=== PATIENT | male | born 1960 | race Caucasian/White ===

== ENCOUNTER 2016-09-27 14:22 | Inpatient (IN) | payer MEDICAID ==
[~2016-09-27] VITALS: Ht 177.8 cm; Wt 88.5 kg
[~2016-09-27 14:22] MED LIST: APIX5TAB PO; FURO40TA5 PO
[2016-09-27] MEDS ORDERED: NITROGLYCERIN PACKET 1 GM PACKET ONE (14:54)
[2016-09-27] MEDS ORDERED: FUROSEMIDE 40 MG/4 ML VIAL ONE (14:54)
[2016-09-27] MEDS ORDERED: NITROGLYCERIN PACKET 1 GM PACKET TD ONE (15:00)
[2016-09-27] MEDS ORDERED: FUROSEMIDE 40 MG/4 ML VIAL IV ONE (15:00)
[2016-09-27 15:09] LABS: BASOPHILS % (AUTO) 0.6 % (0.0-2.0); DIFF TOTAL % 100 %; EOSINOPHILS # (AUTO) 0.2 /CMM (0.0-0.7); EOSINOPHILS % (AUTO) 2.8 % (0.0-6.0); HEMATOCRIT 38 % (39-51); HEMOGLOBIN 12.6 g/dL (13.5-17.5); LYMPHOCYTES # (AUTO) 1.3 /CMM (0.8-4.8); LYMPHOCYTES % (AUTO) 16.6 % (20.0-44.0); MEAN CORPUSCULAR HEMOGLOBIN 29 PG (26.0-33.0); MEAN CORPUSCULAR HGB CONC 34 g/dl (31.0-36.0); MEAN CORPUSCULAR VOLUME 87 fL (80-96); MONOCYTES # (AUTO) 0.6 /CMM (0.1-1.30); MONOCYTES % (AUTO) 7.5 % (2.0-12.0); NEUTROPHILS % (AUTO) 72.5 % (43.0-81.0); PLATELET COUNT (AUTO) 226 /CMM (150-450); RED BLOOD CELL COUNT(AUTO) 4.34 MIL/uL (4.5-6.0); WHITE BLOOD COUNT (AUTO) 8.1 K/uL (4.3-11.0)
[2016-09-27] MEDS ORDERED: DILTIAZEM HCL 25 MG IV ONE (15:17)
[2016-09-27] MEDS ORDERED: IV SET PRIMARY PUMP SET 1 EA INFUS.SET MC ONE (15:17)
[2016-09-27 15:20] LABS: ANION GAP 15 (5-14); CALCIUM, SERUM 8.6 mg/dL (8.5-10.1); CARBON DIOXIDE 24 mmol/L (21-32); CHLORIDE 108 mmol/L (98-107); CREATININE 1.3 mg/dL (0.6-1.3); GFR 57 mL/min (>60); GLUCOSE 144 mg/dL (74-106); POTASSIUM 4.3 mmol/L (3.5-5.1); SODIUM SERUM 142 mmol/L (136-145); UREA NITROGEN, BLOOD 24 mg/dL (7-18)
[2016-09-27 15:24] LABS: INR 1.12 (0.87-1.13); PROTHROMBIN TIME 11.8 SECS (9.5-12.7)
[2016-09-27 15:28] LABS: TROPONIN I < 0.017 ng/mL (0.00-0.056)
[2016-09-27] MEDS ORDERED: DILTIAZEM HCL 25 MG IV IVP ONE (15:30)
[2016-09-27] MEDS: DILTIAZEM HCL IV 125 MG in IV D5W 100 ML IV ONE (15:30)
[2016-09-27 15:32] LABS: ALANINE AMINOTRANSFERASE 47 U/L (12-78); ALBUMIN 3.3 g/dL (3.4-5.0); ASPARTATE AMINOTRANSFERASE 38 U/L (15-37); BILIRUBIN,DIRECT 0.2 mg/dL (0.0-0.2); BILIRUBIN,TOTAL 0.8 mg/dL (0.2-1.0); INDIRECT BILIRUBIN 0.6 mg/dL (0.0-1.1); TOTAL PROTEIN, SERUM 6.6 g/dL (6.4-8.2)
[2016-09-27] MEDS ORDERED: DILTIAZEM HCL IV 125 MG in IV D5W 100 ML IV PRN (18:00)
[2016-09-27] MEDS ORDERED: ONDANSETRON HCL/PF 4 MG/2 ML VIAL IVP PRN (18:00)
[2016-09-27] MEDS ORDERED: ZOLPIDEM TARTRATE 5 MG TABLET PO PRN (18:00)
[2016-09-27] MEDS ORDERED: HYDROCODONE/APAP 5/325MG 1 EACH TABLET PO PRN (18:00)
[2016-09-27] MEDS ORDERED: MAGNESIUM HYDROXIDE 30 ML UDC PO PRN (18:00)
[2016-09-27] MEDS ORDERED: Z GUARD REMEDY 2 OZ OINT TP PRN (18:00)
[2016-09-27] MEDS ORDERED: DIGOXIN INJ 0.5 MG/2 ML AMPUL IV ONE (18:00)
[2016-09-27] MEDS ORDERED: ACETAMINOPHEN 325 MG TABLET PO PRN (18:00)
[2016-09-27] MEDS ORDERED: MAG HYDROX/AL HYDROX/SIMETH 30 ML UDC PO PRN (18:00)
[2016-09-27] MEDS ORDERED: METOPROLOL TARTRATE 25 MG TABLET PO SCH (18:00)
[2016-09-27] MEDS ORDERED: METOPROLOL TARTRATE 25 MG TABLET ONE (18:05)
[2016-09-27] MEDS ORDERED: LORAZEPAM INJ 2 MG/ML VIAL IV PRN (18:30)
[2016-09-27 18:31] LABS: CANNABINOID, URINE NEGATIVE (NEGATIVE); PHENCYCLIDINE SCREEN,URINE NEGATIVE (NEGATIVE)
[2016-09-27 19:30] VITALS: BP 137/90
[2016-09-27 20:00] VITALS: BP 137/90
[2016-09-27] MEDS: APIXABAN 5 MG TABLET PO SCH (21:03)
[2016-09-27] MEDS ORDERED: DILTIAZEM HCL 30 MG TABLET ONE (23:53)
[2016-09-28] VITALS: BP 130/74
[2016-09-28] MEDS: DILTIAZEM HCL 30 MG TABLET PO SCH ×3 (00:10→11:56)
[2016-09-28 04:00] VITALS: BP 137/74
[2016-09-28] MEDS ORDERED: DILTIAZEM HCL 30 MG TABLET ONE (05:22)
[2016-09-28] MEDS ORDERED: PANTOPRAZOLE 40 MG TABLET.DR PO SCH (07:30)
[2016-09-28 07:42] LABS: BASOPHILS # (AUTO) 0.1 /CMM (0.0-0.2); BASOPHILS % (AUTO) 1.2 % (0.0-2.0); DIFF TOTAL % 100 %; EOSINOPHILS # (AUTO) 0.3 /CMM (0.0-0.7); EOSINOPHILS % (AUTO) 3.1 % (0.0-6.0); HEMATOCRIT 40 % (39-51); HEMOGLOBIN 13.6 g/dL (13.5-17.5); LYMPHOCYTES % (AUTO) 22.2 % (20.0-44.0); MEAN CORPUSCULAR HEMOGLOBIN 29 PG (26.0-33.0); MEAN CORPUSCULAR HGB CONC 34 g/dl (31.0-36.0); MEAN CORPUSCULAR VOLUME 87 fL (80-96); MONOCYTES # (AUTO) 0.9 /CMM (0.1-1.30); MONOCYTES % (AUTO) 9.8 % (2.0-12.0); NEUTROPHILS # (AUTO) 5.7 /CMM (1.8-8.9); NEUTROPHILS % (AUTO) 63.7 % (43.0-81.0); PLATELET COUNT (AUTO) 238 /CMM (150-450); RED BLOOD CELL COUNT(AUTO) 4.62 MIL/uL (4.5-6.0)
[2016-09-28 07:55] LABS: CREATININE 1.4 mg/dL (0.6-1.3); PHOSPHORUS 3.6 mg/dL (2.5-4.9); POTASSIUM 4.3 mmol/L (3.5-5.1)
[2016-09-28 08:00] VITALS: BP_SYST 111; BP_SYST 139; BP_DIAS 63; BP_DIAS 76
[2016-09-28] MEDS: APIXABAN 5 MG TABLET PO SCH (08:53)
[2016-09-28] MEDS ORDERED: FUROSEMIDE 40 MG TABLET PO SCH (09:00)
[2016-09-28] MEDS ORDERED: APIXABAN 5 MG TABLET PO SCH (09:00)
[2016-09-28 12:00] VITALS: BP 129/69
[2016-09-28] MEDS ORDERED: DILT240C2 PO (14:48)
[2016-09-28] MEDS ORDERED: APIX5TAB PO (14:48)
== END 2016-09-28 16:01 | disposition home or self-care (01) | DRG 194 ==
LOC: ER 14:24 → ICU 16:52 → TELE-TD 18:17 → TELE1 09-28 10:20
PROVIDERS: ADMIT Internal Medicine; ATTEND Internal Medicine
DX: I13.0 Hypertensive heart and chronic kidney disease with heart failure and stage 1 through stage 4 chronic kidney disease, or unspecified chronic kidney disease (principal); N17.0 Acute kidney failure with tubular necrosis; I48.4 Atypical atrial flutter; E44.0 Moderate protein-calorie malnutrition; I48.0 Paroxysmal atrial fibrillation; E78.5 Hyperlipidemia, unspecified; I50.33 Acute on chronic diastolic (congestive) heart failure; D63.8 Anemia in other chronic diseases classified elsewhere; I48.92 Unspecified atrial flutter; Z91.14 Patient's other noncompliance with medication regimen; N18.3 Chronic kidney disease, stage 3 (moderate); Z96.659 Presence of unspecified artificial knee joint; F17.210 Nicotine dependence, cigarettes, uncomplicated; Z68.28 Body mass index [BMI] 28.0-28.9, adult; F14.90 Cocaine use, unspecified, uncomplicated; Z91.19 Patient's noncompliance with other medical treatment and regimen; K21.9 Gastro-esophageal reflux disease without esophagitis
CPT/HCPCS: 36415; 71010-TC; 80048-TC; 80061-TC; 80076-TC; 80305; 83735-TC; 83880; 84100-TC; 84484-TC; 85025-TC; 85730-TC; 87081-TC; 93307-TC; 97001-TC; A4606; J1160; J1940; J3490; J7060; Z7610

== ENCOUNTER 2017-01-23 19:48 | Inpatient (IN) | payer MEDICAID, OTHER ==
[~2017-01-23] VITALS: Ht 177.8 cm; Wt 86.2 kg
[~2017-01-23 19:48] MED LIST changes: +DILT240C2 PO; -FURO40TA5 PO
--- NOTE | 2017-01-23 20:10 | NUR ---
PT BIB [facility] IN [employer] [facility] C/O DIFFUSE MID TO LEFT SIDED CP PRESSURE-LIKE X4 DAYS, WORSE AFTER GETTING ARRESTED. RESP EVEN UNLABORED. SKIN WARM NONDIAPHORETIC. AMBULATORY WITH STEADY GAIT. NAD NOTED. IN ER BED 14 ON MONITOR.
[2017-01-23 20:20] LABS: BASOPHILS # (AUTO) 0.3 /CMM (0.0-0.2); EOSINOPHILS # (AUTO) 0.1 /CMM (0.0-0.7); EOSINOPHILS % (AUTO) 1.3 % (0.0-6.0); HEMATOCRIT 42 % (39-51); HEMOGLOBIN 14.4 g/dL (13.5-17.5); LYMPHOCYTES # (AUTO) 1.9 /CMM (0.8-4.8); LYMPHOCYTES % (AUTO) 22.4 % (20.0-44.0); MEAN CORPUSCULAR HEMOGLOBIN 30 PG (26.0-33.0); MEAN CORPUSCULAR HGB CONC 34 g/dl (31.0-36.0); MEAN CORPUSCULAR VOLUME 88 fL (80-96); MONOCYTES # (AUTO) 0.6 /CMM (0.1-1.30); MONOCYTES % (AUTO) 6.6 % (2.0-12.0); NEUTROPHILS # (AUTO) 5.8 /CMM (1.8-8.9); NEUTROPHILS % (AUTO) 66.7 % (43.0-81.0); PLATELET COUNT (AUTO) 247 /CMM (150-450); RDW COEFFICIENT OF VARIATION 14.6 (11.5-15.0); RED BLOOD CELL COUNT(AUTO) 4.77 MIL/uL (4.5-6.0); WHITE BLOOD COUNT (AUTO) 8.7 K/uL (4.3-11.0)
[2017-01-23] MEDS ORDERED: ASPIRIN 81 MG TAB.CHEW ONE (20:27)
[2017-01-23 20:30] LABS: CALCIUM, SERUM 8.8 mg/dL (8.5-10.1); CARBON DIOXIDE 26 mmol/L (21-32); CHLORIDE 105 mmol/L (98-107); CREATININE 1.3 mg/dL (0.6-1.3); GLUCOSE 84 mg/dL (74-106); POTASSIUM 3.8 mmol/L (3.5-5.1); SODIUM SERUM 139 mmol/L (136-145); UREA NITROGEN, BLOOD 20 mg/dL (7-18)
[2017-01-23] MEDS ORDERED: ASPIRIN 81 MG TAB.CHEW PO ONE (20:30)
[2017-01-23 20:33] LABS: INR 1.01 (0.87-1.13); PROTHROMBIN TIME 10.5 SECS (9.5-12.7)
[2017-01-23 20:39] LABS: TROPONIN I < 0.017 ng/mL (0.00-0.056)
--- NOTE | 2017-01-23 21:12 | NUR ---
PAGED DR JONES DOPER OPERATOR FOR PANEL
--- NOTE | 2017-01-23 21:33 | NUR ---
RESTING QUIETLY, NAD NOTED. VSS. ALL NEEDS ATTENDED TO.
--- NOTE | 2017-01-23 21:43 | NUR ---
REPORT GIVEN TO BLAINE HUMPHREYS FOR ADMISSION
[2017-01-23 22:00] VITALS: BP 149/88
[2017-01-23] MEDS ORDERED: ZOLPIDEM TARTRATE 5 MG TABLET PO PRN (22:00)
[2017-01-23] MEDS ORDERED: Z GUARD REMEDY 2 OZ OINT TP PRN (22:00)
[2017-01-23] MEDS ORDERED: MORPHINE SULFATE INJ 2 MG/ML DISP.SYRIN IV PRN (22:00)
[2017-01-23] MEDS ORDERED: ONDANSETRON HCL/PF 4 MG/2 ML VIAL IVP PRN (22:00)
[2017-01-23] MEDS ORDERED: ACETAMINOPHEN 325 MG TABLET PO PRN (22:00)
[2017-01-23] MEDS ORDERED: MAG HYDROX/AL HYDROX/SIMETH 30 ML UDC PO PRN (22:00)
[2017-01-23] MEDS ORDERED: MAGNESIUM HYDROXIDE 30 ML UDC PO PRN (22:00)
[2017-01-23] MEDS ORDERED: HYDROCODONE/APAP 5/325MG 1 EACH TABLET PO PRN (22:00)
--- NOTE | 2017-01-23 22:00 | NUR ---
TELE NOTES New admit patient. Alert and oriented. On room air. No acute respiratory distress noted. Denies any chest pain. On tele monitor. Nursing care rendered. Oriented to the room settings. Ambulatory. Will continue to monitor.
--- NOTE | 2017-01-23 22:06 | NUR ---
PT TRANSPORTED TO [facility] IN STABLE CONDITION VIA ACLS PROTOCOL
[2017-01-24] VITALS: BP 144/76
--- NOTE | 2017-01-24 | NUR ---
TELE NOTES Der. Martínez came and seen patient.
[2017-01-24 02:00] VITALS: BP 144/76
[2017-01-24 06:23] LABS: BASOPHILS % (AUTO) 0.7 % (0.0-2.0); EOSINOPHILS # (AUTO) 0.3 /CMM (0.0-0.7); EOSINOPHILS % (AUTO) 4.3 % (0.0-6.0); HEMATOCRIT 41 % (39-51); LYMPHOCYTES # (AUTO) 1.9 /CMM (0.8-4.8); LYMPHOCYTES % (AUTO) 28.4 % (20.0-44.0); MEAN CORPUSCULAR HEMOGLOBIN 30 PG (26.0-33.0); MEAN CORPUSCULAR HGB CONC 34 g/dl (31.0-36.0); MEAN CORPUSCULAR VOLUME 89 fL (80-96); MONOCYTES # (AUTO) 0.6 /CMM (0.1-1.30); MONOCYTES % (AUTO) 8.5 % (2.0-12.0); NEUTROPHILS # (AUTO) 3.9 /CMM (1.8-8.9); NEUTROPHILS % (AUTO) 58.1 % (43.0-81.0); PLATELET COUNT (AUTO) 228 /CMM (150-450); RDW COEFFICIENT OF VARIATION 15.8 (11.5-15.0); RED BLOOD CELL COUNT(AUTO) 4.64 MIL/uL (4.5-6.0); WHITE BLOOD COUNT (AUTO) 6.7 K/uL (4.3-11.0)
[2017-01-24 06:38] LABS: ALBUMIN 3.2 g/dL (3.4-5.0); BILIRUBIN,TOTAL 0.4 mg/dL (0.2-1.0); CALCIUM, SERUM 8.8 mg/dL (8.5-10.1); CREATININE 1.2 mg/dL (0.6-1.3); MAGNESIUM 2.3 mg/dL (1.8-2.4); PHOSPHORUS 4.4 mg/dL (2.5-4.9); POTASSIUM 3.9 mmol/L (3.5-5.1); TOTAL PROTEIN, SERUM 6.4 g/dL (6.4-8.2)
--- NOTE | 2017-01-24 06:53 | NUR ---
TELE NOTES PT REMAINS STABLE THROUGHOUT THE NIGHT. DENIES ANY CHEST PAIN OR DISCOMFORT. ON ROOM AIR. NO RESP. DISTRESS NOTED. PT REFUSED AND REMOVES TELE MONITOR AT THIS TIME. EXPLAINED RISK AND BENEFIT. ALL NEEDS ANTICIPATED. WILL ENDORSE TO THE NEXT SHIFT.
[2017-01-24] MEDS ORDERED: PANTOPRAZOLE 40 MG TABLET.DR PO SCH (07:30)
--- NOTE | 2017-01-24 07:40 | NUR ---
DIRECTOR OF LABORATORY OPERATIONS NOTES RECEIVED PATIENT IN BED, A/0 X4, VERBALLY RESPONSIVE. NO APPARENT DISTRESS NOTED, DENIES SOB, DENIES CHEST PAIN. ON TELE MONITORING, REFUSING LEADS, PER PATIENT HE WANTS TO PUT THEM BACK ON AFTER BREAKFAST. PM SHIFT ENDORSED THAT PATIENT REFUSED TO BE NPO, DR MOSLEY AWARE. IV LINE ON LFA PATENT. ALL NEEDS MET, WILL CONTINUE TO MONITOR.
[2017-01-24 08:00] VITALS: BP 161/92
--- NOTE | 2017-01-24 08:00 | NUR ---
SALES SECRETARY NOTES PATIENT IN BED RESTING NO SOB OR ACUTE DISTRESS NOTED. PATIENT REFUSES TO HAVE TELE MONITOR. STATES AFTER BREAKFAST HE WILL ALLOW FOR TELE MONITOR TO BE APPLIED. PATIENT NOTED WITH PERIPHERAL IV INTACT, PATENT. BED IN LOW, LOCKED POSITION. CALL LIGHT WITHIN REACH. WILL CONTINUE TO MONITOR.
[2017-01-24] MEDS ORDERED: DILTIAZEM HCL CD 240 MG PO SCH (09:00)
[2017-01-24] MEDS ORDERED: APIXABAN 5 MG TABLET PO SCH ×2 (09:00)
[2017-01-24] MEDS ORDERED: FUROSEMIDE 40 MG TABLET PO SCH (09:00)
[2017-01-24 09:01] VITALS: BP 161/92
--- NOTE | 2017-01-24 09:10 | NUR ---
CUSTOMER ADVISOR NOTES ELIQUIS NOT GIVEN DUE TO PHARMACY NOT HAVING IT IN STOCK. PER PATIENT HE WILL SEE IF HE CAN BRING IT FROM HOME.
--- NOTE | 2017-01-24 10:00 | NUR ---
EQUIPMENT OR MACHINERY CLEANER NOTES PATIENT SEEN AND EVALUATED BY DR. SAUER. STATES PATIENT CLEARED TO BE DISCHARGED.
--- NOTE | 2017-01-24 10:30 | NUR ---
ICE RESURFACING MACHINE OPERATORS NOTES PATIENT REQUESTS TO BE DISCHARGED OR HE WILL LEAVE AMA. DR. SAUER NOTIFIED DISCHARGE ORDERS OBTAINED PRESCRIPTION OBTAINED. PATIENT FOUND IN FRONT OF ELEVATOR TRYING TO LEAVE. ADVISED PATIENT TO WAIT FOR DISCHARGE PAPERWORK. PATIENT AGREED TO WAIT FOR COUPLE OF MINUTES FOR DISCHARGE PAPER WORK. PATIENT REFUSED EDUCATION FOR DISCHARGE. PATIENT REMOVED PERIPHERAL IV. NO BLEEDING NOTED. ID BAND REMOVED. PRESCRIPTION PROVIDED, PATIENT VERBALIZED UNDERSTANDING OF MEDICATION. PATIENT REPORTS HAVING ALL HIS BELONGINGS. BELONGING LIST SIGNED BY PATIENT. ESCORTED TO CAR. AWARE OF ALL ABNORMAL LABS.
--- NOTE | 2017-01-24 10:46 | NUR ---
Social service consult requested by [facility] Arshad for possible homelessness. Per H&P report by Dr. Chery, pt. is a 56 year old male with past medical history with chronic AFIB, CHF, CKD, Hypertension, who presented with chest pain x 3 days. Chest pain has gotten worst today with associated nausea, sweating, and dizziness. Patient stated that chest pain location is in the ubsternal region, radiating to his left arm. Pain was worsened after being arrested today. Patient was given Nitro in the field which improved his chest pain. DARIA met with pt. bedside. Pt. is alert and oriented x 3. Pt. appears very anxious and continued to pace around stating, he wants to leave and meet his girlfriend in the lobby. SW tried to calm pt. Pt. states he resides with his girlfriend Elizabeth Pedro but did not know her address. Pt. has been residing with her for a couple of years now. DARIA offered pt. homeless resources which pt. is willing to accept. DARIA informed pt. she will bring them to him shortly. Pt. denies suicidal/homicidal ideations and visual/auditory hallucinations at this time. Pt. informed pt. she will be back with some resources. When SW went back to meet with pt. to give him resources, pt. had left the hospital against medical advise.
[2017-01-24] MEDS ORDERED: FURO-144 PO (10:55)
== END 2017-01-24 10:00 | disposition home or self-care (01) | DRG 951 ==
LOC: ER 19:54 → TELE 21:41
PROVIDERS: ADMIT Family Medicine; ATTEND Family Medicine
DX: Z76.5 Malingerer [conscious simulation] (principal); I13.0 Hypertensive heart and chronic kidney disease with heart failure and stage 1 through stage 4 chronic kidney disease, or unspecified chronic kidney disease; I50.32 Chronic diastolic (congestive) heart failure; I48.4 Atypical atrial flutter; N18.9 Chronic kidney disease, unspecified; K21.9 Gastro-esophageal reflux disease without esophagitis; E78.5 Hyperlipidemia, unspecified; F17.210 Nicotine dependence, cigarettes, uncomplicated; I48.2 Chronic atrial fibrillation; Z79.01 Long term (current) use of anticoagulants; Z96.659 Presence of unspecified artificial knee joint; Z87.898 Personal history of other specified conditions; Z91.14 Patient's other noncompliance with medication regimen
CPT/HCPCS: 36415; 71010-TC; 80048-TC; 80053-TC; 80305; 83735-TC; 84100-TC; 84484-TC; 85025-TC; 85378-TC; 85730-TC; 87081-TC; A4606; Z7610

== ENCOUNTER 2017-03-04 17:21 | Emergency (ER) | payer OTHER ==
[~2017-03-04] VITALS: Ht 175.3 cm; Wt 79.4 kg
[~2017-03-04 17:21] MED LIST changes: +FURO-144 PO
[2017-03-04] MEDS ORDERED: ASPIRIN 325 MG TABLET PO ONE (17:30)
--- NOTE | 2017-03-04 17:30 | NUR ---
PATIENT BIB [facility], C/O CHEST PAIN, 01/26. RADIATING TO LEFT HAND. PATIENT IS A/OX 4. BREATHING EVEN AND UNLABORED ON ROOM AIR. NO SOB. VITALS REMAIN STABLE. SAFETY AND COMFORT MEASURES IN PLACE. AWAITING MD ORDERS.
[2017-03-04] MEDS ORDERED: ASPIRIN 325 MG TABLET ONE (17:36)
[2017-03-04 17:47] LABS: BASOPHILS # (AUTO) 0.2 /CMM (0.0-0.2); BASOPHILS % (AUTO) 2.2 % (0.0-2.0); EOSINOPHILS # (AUTO) 0.2 /CMM (0.0-0.7); EOSINOPHILS % (AUTO) 1.8 % (0.0-6.0); HEMATOCRIT 41 % (39-51); HEMOGLOBIN 13.7 g/dL (13.5-17.5); LYMPHOCYTES # (AUTO) 1.2 /CMM (0.8-4.8); LYMPHOCYTES % (AUTO) 12.7 % (20.0-44.0); MEAN CORPUSCULAR HEMOGLOBIN 30 PG (26.0-33.0); MEAN CORPUSCULAR HGB CONC 34 g/dl (31.0-36.0); MEAN CORPUSCULAR VOLUME 90 fL (80-96); MONOCYTES # (AUTO) 1.2 /CMM (0.1-1.30); MONOCYTES % (AUTO) 11.9 % (2.0-12.0); NEUTROPHILS % (AUTO) 71.4 % (43.0-81.0); PLATELET COUNT (AUTO) 262 /CMM (150-450); RED BLOOD CELL COUNT(AUTO) 4.51 MIL/uL (4.5-6.0); WHITE BLOOD COUNT (AUTO) 9.8 K/uL (4.3-11.0)
[2017-03-04 17:56] LABS: CALCIUM, SERUM 8.8 mg/dL (8.5-10.1); CARBON DIOXIDE 30 mmol/L (21-32); CHLORIDE 105 mmol/L (98-107); CREATININE 1.3 mg/dL (0.6-1.3); GLUCOSE 101 mg/dL (74-106); POTASSIUM 4.1 mmol/L (3.5-5.1); SODIUM SERUM 140 mmol/L (136-145); UREA NITROGEN, BLOOD 21 mg/dL (7-18)
[2017-03-04 18:00] LABS: INR 0.97 (0.87-1.13); PROTHROMBIN TIME 10.1 SECS (9.5-12.7)
[2017-03-04 18:03] LABS: TROPONIN I < 0.017 ng/mL (0.00-0.056)
--- NOTE | 2017-03-04 18:06 | NUR ---
MEDICATIONS ENTERED NOT ADMINISTERED AT THIS TIME D/T DUPLICATION WHEN PULLED FROM NEW OMNICELL MACHINE.
[2017-03-04 18:09] LABS: B-TYPE NATRIURETIC PEPTIDE 304 PG/ML (0-125)
--- NOTE | 2017-03-04 18:16 | NUR ---
XRAY AT BEDSIDE.
--- NOTE | 2017-03-04 18:29 | NUR ---
PATIENT'S BLOOD PRESSURE RUNNING HIGH, 179/100. DR. JARRELL MADE AWARE, MD TO PROVIDE FURTHER ORDERS.
[2017-03-04] MEDS ORDERED: FUROSEMIDE 40 MG/4 ML VIAL IV ONE (18:30)
[2017-03-04] MEDS ORDERED: FUROSEMIDE 40 MG/4 ML VIAL ONE (18:31)
--- NOTE | 2017-03-04 19:07 | NUR ---
REPORT REC'D FROM JULIANN WATERS FOR MYKEL.
--- NOTE | 2017-03-04 20:03 | NUR ---
pt was c/o chest tightening. DR. JARRELL NOTIFIED. REPEAT EKG ORDERED.
--- NOTE | 2017-03-04 20:14 | NUR ---
IV removed. Catheter intact and site benign. Pressure and 4x4 applied to site. No bleeding noted.Patient discharged to [facility] in stable condition. Written and verbal after care instructions given. Patient verbalizes understanding of instruction AND RX. PT AMBULATE OUT WITH A STEADY GAIT. IN LEG CHAINS AND HANDCUFFS.
[2017-03-04 20:40] VITALS: BP 169/87
== END 2017-03-04 20:14 ==
LOC: ER 17:24
DX: R07.89 Other chest pain (principal); I13.0 Hypertensive heart and chronic kidney disease with heart failure and stage 1 through stage 4 chronic kidney disease, or unspecified chronic kidney disease; I50.9 Heart failure, unspecified; N18.9 Chronic kidney disease, unspecified; I48.91 Unspecified atrial fibrillation; E87.6 Hypokalemia; F17.200 Nicotine dependence, unspecified, uncomplicated; N28.9 Disorder of kidney and ureter, unspecified; Z79.01 Long term (current) use of anticoagulants; Z91.14 Patient's other noncompliance with medication regimen
CPT/HCPCS: 36415; 71010-TC; 80048-TC; 83880; 84484-TC; 85025-TC; 85730-TC; A4606; J1940; Z7610

== ENCOUNTER 2017-10-14 10:02 | Inpatient (IN) | payer MEDICAID, OTHER ==
[~2017-10-14] VITALS: Ht 177.8 cm; Wt 83.9 kg
--- NOTE | 2017-10-14 10:05 | NUR ---
CHEST PAIN PRESSURE NON RADIATING SINCE AM. PLACED ON MONITOR. AWAITING MD ORDER Addendum: 10/14/17 at 1058 by ANDREA RADIATING TO LEFT ARM
[2017-10-14 10:59] LABS: BASOPHILS # (AUTO) 0.1 /CMM (0.0-0.2); BASOPHILS % (AUTO) 1.7 % (0.0-2.0); EOSINOPHILS # (AUTO) 0.5 /CMM (0.0-0.7); EOSINOPHILS % (AUTO) 6.4 % (0.0-6.0); HEMATOCRIT 39 % (39-51); HEMOGLOBIN 13.6 g/dL (13.5-17.5); LYMPHOCYTES # (AUTO) 1.2 /CMM (0.8-4.8); LYMPHOCYTES % (AUTO) 16.3 % (20.0-44.0); MEAN CORPUSCULAR HEMOGLOBIN 31 PG (26.0-33.0); MEAN CORPUSCULAR HGB CONC 35 g/dl (31.0-36.0); MEAN CORPUSCULAR VOLUME 89 fL (80-96); MONOCYTES # (AUTO) 0.6 /CMM (0.1-1.30); MONOCYTES % (AUTO) 7.9 % (2.0-12.0); NEUTROPHILS # (AUTO) 4.8 /CMM (1.8-8.9); NEUTROPHILS % (AUTO) 67.7 % (43.0-81.0); PLATELET COUNT (AUTO) 266 /CMM (150-450); RDW COEFFICIENT OF VARIATION 12.9 (11.5-15.0); WHITE BLOOD COUNT (AUTO) 7.2 K/uL (4.3-11.0)
--- NOTE | 2017-10-14 10:59 | NUR ---
LAC #20 IV ACCESS BLOOD SAMPLE COLLECTED SENT TO LAB
--- NOTE | 2017-10-14 10:59 | NUR ---
CORE DRIER AT BEDSIDE
[2017-10-14] MEDS ORDERED: ASPIRIN 325 MG TABLET PO ONE (11:00)
[2017-10-14] MEDS ORDERED: NITROGLYCERIN PACKET 1 GM PACKET TD ONE (11:00)
[2017-10-14] MEDS ORDERED: ASPIRIN 325 MG TABLET ONE (11:07)
[2017-10-14] MEDS ORDERED: NITROGLYCERIN PACKET 1 GM PACKET ONE (11:07)
[2017-10-14 11:09] LABS: CALCIUM, SERUM 9.1 mg/dL (8.5-10.1); CARBON DIOXIDE 30 mmol/L (21-32); CHLORIDE 106 mmol/L (98-107); CREATININE 1.3 mg/dL (0.6-1.3); GLUCOSE 103 mg/dL (74-106); POTASSIUM 4.4 mmol/L (3.5-5.1); SODIUM SERUM 139 mmol/L (136-145); UREA NITROGEN, BLOOD 25 mg/dL (7-18)
[2017-10-14 11:11] LABS: INR 0.96 (0.85-1.15)
[2017-10-14 11:17] LABS: TROPONIN I < 0.017 ng/mL (0.00-0.056)
[2017-10-14 11:22] LABS: B-TYPE NATRIURETIC PEPTIDE 294 PG/ML (0-125)
--- NOTE | 2017-10-14 11:44 | NUR ---
CALLED NURSE SUP FOR TELE BED
--- NOTE | 2017-10-14 12:10 | NUR ---
PAGED EPIC FOR PANEL
[2017-10-14] MEDS ORDERED: ONDANSETRON HCL/PF 4 MG/2 ML VIAL ONE (12:29)
[2017-10-14] MEDS ORDERED: ONDANSETRON HCL/PF 4 MG/2 ML VIAL IVP ONE (12:30)
[2017-10-14] MEDS ORDERED: MORPHINE SULFATE INJ 4 MG/ML DISP.SYRIN ONE (12:30)
[2017-10-14] MEDS ORDERED: MORPHINE SULFATE INJ 2 MG/ML DISP.SYRIN IV ONE (12:30)
--- NOTE | 2017-10-14 12:56 | NUR ---
GAVE REPORT TO THAD HUMPHREYS TELE DX CO GOYO TAN ADMITTING .
--- NOTE | 2017-10-14 13:30 | NUR ---
ADMISSION NOTE RECEIVED PT FROM ER. PT IS STABLE, NO S/S OF RESP DISTRESS OR SOB, BREATHING IS EVEN AND UNLABORED. PT ARRIVED IN [facility], HOWEVER IS ABLE TO AMBULATE. NO C/O CHEST PAIN AT THIS TIME. PT DESCRIBED EARLIER CHEST PAIN PRESSURE AND PULLING RADIATING TO LEFT ARM. PAIN RELIEVED BY MORPHINE. PT SKIN APPEARS TO BE INTACT. IV ACCESS LOCATED ON LEFT AC 18 G CURRENTLY SL. NOTIFIED MD OF PTS ARRIVAL ON UNIT AND TO RECEIVE ADMISSION ORDERS. SAFETY MEASURES IN PLACE, CALL LIGHT WITHIN REACH. WILL CONTINUE TO MONITOR.
[2017-10-14 16:00] VITALS: BP 147/78
[2017-10-14] MEDS ORDERED: MAG HYDROX/AL HYDROX/SIMETH 30 ML UDC PO PRN (16:00)
[2017-10-14] MEDS ORDERED: Z GUARD REMEDY 2 OZ OINT TP PRN (16:00)
[2017-10-14] MEDS ORDERED: ZOLPIDEM TARTRATE 5 MG TABLET PO PRN (16:00)
[2017-10-14] MEDS ORDERED: ACETAMINOPHEN 325 MG TABLET PO PRN (16:00)
[2017-10-14] MEDS ORDERED: MAGNESIUM HYDROXIDE 30 ML UDC PO PRN (16:00)
[2017-10-14] MEDS ORDERED: HYDROCODONE/APAP 5/325MG 1 EACH TABLET PO PRN (16:00)
[2017-10-14] MEDS ORDERED: NITROGLYCERIN 0.4 MG/TAB BOTTLE SL PRN (16:00)
[2017-10-14] MEDS ORDERED: ONDANSETRON HCL/PF 4 MG/2 ML VIAL IVP PRN (16:00)
[2017-10-14] MEDS ORDERED: ENOXAPARIN SODIUM 40 MG/0.4 ML DISP.SYRIN SQ SCH (16:00)
[2017-10-14] MEDS: ATORVASTATIN 10 MG TABLET PO SCH (18:08)
--- NOTE | 2017-10-14 18:26 | NUR ---
RN CLOSING NOTE PT IN BED SLEEPING. NO S/S OF RESP DISTRESS OR SOB. PT HAS NO C/O PAIN AT THIS TIME. PER MD, PT TO HAVE LEXISCAN IN AM ON 10/15/17. CONSENT FORM SIGNED AND PLACED IN CHART. PT TO BE NPO AFTER MIDNIGHT IN PREPERATION OF PROCEDURE. ALL PT NEEDS ANTICIPATED AND MET, SAFETY MEASURES IN PLACE, CALL LIGHT WITHIN REACH. WILL ENDORSE TO LEGAL FILE CLERK FOR MYKEL.
--- NOTE | 2017-10-14 19:50 | NUR ---
ATHLETIC SHOE DESIGNER INITIAL NOTES PT IS IN BED SLEEPING, EASILY AROUSED. ABLE TO MAKE NEEDS KNOWN. DENIES PAIN AT THIS TIME. NO SIGNS OF SOB OR DISTRESS, BREATHING EVENLY AND UNLABORED ON RA. IV ACCESS IS INTACT AND PATENT. REMINDED PT THAT URINE IS NEEDED, AND NPO STATUS AT MIDNIGHT. BED IS IN LOW AND LOCKED POSITION, CALL LIGHT WITHIN REACH. WILL CONTINUE TO MONITOR PT
[2017-10-14 20:00] VITALS: BP 138/75
[2017-10-15 00:33] LABS: APPEARANCE,URINE CLEAR (CLEAR); BILIRUBIN,URINE NEGATIVE (NEGATIVE); BLOOD, URINE NEGATIVE Ery/uL (NEGATIVE); COLOR,URINE YELLOW (YELLOW); KETONES,URINE NEGATIVE (NEGATIVE); LEUKOCYTE ESTERASE ,URINE NEGATIVE (NEGATIVE); NITRITE, URINE NEGATIVE (NEGATIVE); PROTEIN,URINE NEGATIVE (NEGATIVE); UGLUCOSE NEGATIVE (NEGATIVE); UROBILINOGEN,URINE 0.2 EU/dL (0.2)
--- NOTE | 2017-10-15 06:44 | NUR ---
ASSEMBLY LINE MACHINE OPERATOR CLOSING NOTES PT IS IN BED SLEEPING. NPO SINCE MIDNIGHT FOR LEXISCAN. NO SIGNS OF SOB OR DISTRESS, BREATHING EVENLY AND UNLABORED ON RA. DENIES PAIN AT THIS TIME. NO SIGNS OF SOB OR DISTRESS. BED IS IN LOW AND LOCKED POSITION, CALL LIGHT WITHIN REACH. WILL ENDORSE TO DAYSHIFT.
[2017-10-15 07:19] LABS: CALCIUM, SERUM 8.9 mg/dL (8.5-10.1); CREATININE 1.3 mg/dL (0.6-1.3); MAGNESIUM 2.2 mg/dL (1.8-2.4); PHOSPHORUS 3.7 mg/dL (2.5-4.9); POTASSIUM 4.4 mmol/L (3.5-5.1)
[2017-10-15 07:20] LABS: BASOPHILS % (AUTO) 0.5 % (0.0-2.0); EOSINOPHILS # (AUTO) 0.5 /CMM (0.0-0.7); HEMATOCRIT 39 % (39-51); HEMOGLOBIN 13.1 g/dL (13.5-17.5); LYMPHOCYTES # (AUTO) 1.8 /CMM (0.8-4.8); LYMPHOCYTES % (AUTO) 20.8 % (20.0-44.0); MEAN CORPUSCULAR HEMOGLOBIN 31 PG (26.0-33.0); MEAN CORPUSCULAR HGB CONC 34 g/dl (31.0-36.0); MEAN CORPUSCULAR VOLUME 91 fL (80-96); MONOCYTES # (AUTO) 0.6 /CMM (0.1-1.30); MONOCYTES % (AUTO) 6.8 % (2.0-12.0); NEUTROPHILS # (AUTO) 5.6 /CMM (1.8-8.9); NEUTROPHILS % (AUTO) 65.9 % (43.0-81.0); PLATELET COUNT (AUTO) 244 /CMM (150-450); RDW COEFFICIENT OF VARIATION 13.7 (11.5-15.0); RED BLOOD CELL COUNT(AUTO) 4.27 MIL/uL (4.5-6.0); WHITE BLOOD COUNT (AUTO) 8.6 K/uL (4.3-11.0)
--- NOTE | 2017-10-15 07:30 | NUR ---
tele gravity meter operator: initial assessment received pt in bed awake, a/ox3. pt has been npo for stress test this morning, however pt is refusing to have done today and wants to eat now, educated pt re: stress test and it will be the same process as before, stated, "i know, no food after midnight." left message to chan (nuclear med). awaiting for dr. martinez. will continue to monitor.
[2017-10-15 08:00] VITALS: BP 161/96
--- NOTE | 2017-10-15 08:00 | NUR ---
tele reconditioner: notes chan (nuclear med) at bedside and teaching provided re: stress test, but pt is still refusing and wants to eat.
--- NOTE | 2017-10-15 08:05 | NUR ---
tele coater slate: notes dr. martinez notified and informed re: pt refusing stress test today and wants it tomorrow. informed pt isotope med already ordered and test will not done tomorrow per well tender, but pt still refusing and wants to eat, pt verbalized understanding teaching. breakfast tray served.
[2017-10-15] MEDS: ATORVASTATIN 10 MG TABLET PO SCH (08:50)
[2017-10-15] MEDS ORDERED: ASPIRIN 81 MG TAB.CHEW PO SCH (09:00)
--- NOTE | 2017-10-15 09:30 | NUR ---
tele stem lead former: cardio f/u seen by dr. martinez at this time. pt remains non-compliant with tx plan. for d'c planning home, awaiting for pmd to evaluate pt.
[2017-10-15] MEDS ORDERED: REGADENOSON 0.4 MG/5 ML DISP.SYRIN IVP ONE (10:00)
[2017-10-15] MEDS ORDERED: VALSARTAN 80 MG TABLET PO SCH (10:00)
[2017-10-15 10:44] VITALS: BP 152/90
--- NOTE | 2017-10-15 11:30 | NUR ---
tele retail pharmacy merchandiser: notes tele removed as ordered.
[2017-10-15] MEDS ORDERED: ATOR10TA PO (12:12)
[2017-10-15] MEDS ORDERED: VALS80TA2 PO (12:12)
[2017-10-15] MEDS ORDERED: ASPI-1169 PO (12:12)
--- NOTE | 2017-10-15 12:26 | NUR ---
tele residence director: md visit seen and examined by karina (acnp) with order to d'c home with Discharge instructions <Follow up with PCP, Ambulate, Encouraged medication compliance, Encouraged cessation of ETOH, tobacco, cocaine and cannabinoids. pt verbalized understanding, but wants to stay here as stated by karina.
--- NOTE | 2017-10-15 12:30 | NUR ---
m/s china painter: d'c instructions discharged instructions with prescriptions given to pt and verbalized understanding. h/l removed with tip intact with no bleeding, no redness, and no swelling noted. all belongings returned to pt. pt will call uber as stated.
--- NOTE | 2017-10-15 12:40 | NUR ---
m/s exercise teacher: discharged discharged home via uber in stable condition with all d'c papers and belongings.
== END 2017-10-15 14:10 | disposition home or self-care (01) | DRG 194 ==
LOC: ER 10:04 → TELE 12:37 → MED 12:48 → TELE 13:15 → MED 10-15 12:12
PROVIDERS: ADMIT Nurse Practitioner Acute Care; ATTEND Nurse Practitioner Acute Care
DX: I11.0 Hypertensive heart disease with heart failure (principal); D68.59 Other primary thrombophilia; Z79.01 Long term (current) use of anticoagulants; I25.10 Atherosclerotic heart disease of native coronary artery without angina pectoris; I50.32 Chronic diastolic (congestive) heart failure; I13.0 Hypertensive heart and chronic kidney disease with heart failure and stage 1 through stage 4 chronic kidney disease, or unspecified chronic kidney disease; N18.9 Chronic kidney disease, unspecified; E87.6 Hypokalemia; Z79.899 Other long term (current) drug therapy; Z96.659 Presence of unspecified artificial knee joint; Z91.19 Patient's noncompliance with other medical treatment and regimen; Z91.14 Patient's other noncompliance with medication regimen; F14.90 Cocaine use, unspecified, uncomplicated; F10.10 Alcohol abuse, uncomplicated; F17.200 Nicotine dependence, unspecified, uncomplicated; F19.10 Other psychoactive substance abuse, uncomplicated; Z79.82 Long term (current) use of aspirin; I48.91 Unspecified atrial fibrillation; K21.9 Gastro-esophageal reflux disease without esophagitis
CPT/HCPCS: 36415; 71045-TC; 80048-TC; 80061-TC; 80305; 81000-TC; 83735-TC; 83880; 84100-TC; 84484-TC; 85025-TC; 85378-TC; 85730-TC; 87081-TC; A4606; J1650; J2270; J2405; J2785; Z7610

== ENCOUNTER 2017-12-26 08:44 | Inpatient (IN) | payer MEDICAID ==
[~2017-12-26] VITALS: Ht 172.7 cm; Wt 83.9 kg
[~2017-12-26 08:44] MED LIST changes: -APIX5TAB PO; +ASPI-1169 PO; +ATOR10TA PO; -DILT240C2 PO; -FURO-144 PO; +VALS80TA2 PO
--- NOTE | 2017-12-26 08:45 | NUR ---
PRESENTS TO ER C/O NON-RADIATING MIDSTERNAL CHEST PAIN SINCE LAST NIGHT. A/OX 4. BREATHING EVEN AND UNLABORED. NO SOB, NAD, VITALS STABLE. SKIN WARM AND DRY. SAFETY AND COMFORT MEASURES IN PLACE. AWAITING MD ORDERS.
--- NOTE | 2017-12-26 08:55 | NUR ---
NEW IV STARTED ON RAC, 18G. BLOOD DRAWN AND SENT TO LAB.
[2017-12-26] MEDS ORDERED: ONDANSETRON HCL/PF 4 MG/2 ML VIAL ONE (08:59)
[2017-12-26] MEDS ORDERED: ASPIRIN 81 MG TAB.CHEW ONE (08:59)
[2017-12-26] MEDS ORDERED: IV NS 0.9% 1,000 ML BAG IV ONE (09:00)
[2017-12-26] MEDS ORDERED: ONDANSETRON HCL/PF 4 MG/2 ML VIAL IVP ONE (09:00)
[2017-12-26] MEDS ORDERED: ASPIRIN 81 MG TAB.CHEW PO ONE (09:00)
[2017-12-26 09:05] LABS: BASOPHILS # (AUTO) 0.1 /CMM (0.0-0.2); BASOPHILS % (AUTO) 1.3 % (0.0-2.0); HEMATOCRIT 41 % (39-51); LYMPHOCYTES # (AUTO) 1.8 /CMM (0.8-4.8); LYMPHOCYTES % (AUTO) 22.7 % (20.0-44.0); MEAN CORPUSCULAR HGB CONC 34 g/dl (31.0-36.0); MEAN CORPUSCULAR VOLUME 88 fL (80-96); MONOCYTES # (AUTO) 0.6 /CMM (0.1-1.30); MONOCYTES % (AUTO) 7.2 % (2.0-12.0); NEUTROPHILS # (AUTO) 4.9 /CMM (1.8-8.9); NEUTROPHILS % (AUTO) 63.8 % (43.0-81.0); PLATELET COUNT (AUTO) 265 /CMM (150-450); RDW COEFFICIENT OF VARIATION 13.9 (11.5-15.0); RED BLOOD CELL COUNT(AUTO) 4.67 MIL/uL (4.5-6.0); WHITE BLOOD COUNT (AUTO) 7.7 K/uL (4.3-11.0)
[2017-12-26 09:12] LABS: INR 0.96 (0.87-1.13)
[2017-12-26 09:14] LABS: CALCIUM, SERUM 9.1 mg/dL (8.5-10.1); CARBON DIOXIDE 27 mmol/L (21-32); CHLORIDE 106 mmol/L (98-107); CREATININE 0.6 mg/dL (0.6-1.3); GLUCOSE 99 mg/dL (74-106); POTASSIUM 4.3 mmol/L (3.5-5.1); SODIUM SERUM 140 mmol/L (136-145); UREA NITROGEN, BLOOD 18 mg/dL (7-18)
[2017-12-26 09:20] LABS: TROPONIN I < 0.017 ng/mL (0.00-0.056)
[2017-12-26 09:21] LABS: ALANINE AMINOTRANSFERASE 30 U/L (12-78); ALBUMIN 3.6 g/dL (3.4-5.0); ALKALINE PHOSPHATASE 60 U/L (46-116); ASPARTATE AMINOTRANSFERASE 31 U/L (15-37); BILIRUBIN,DIRECT 0.1 mg/dL (0.0-0.2); BILIRUBIN,TOTAL 0.5 mg/dL (0.2-1.0); TOTAL PROTEIN, SERUM 7.3 g/dL (6.4-8.2)
--- NOTE | 2017-12-26 10:25 | NUR ---
REPORT GIVEN TO LUH HUMPHREYS FOR MYKEL UPON ADMISSION.
[2017-12-26 10:50] LABS: APPEARANCE,URINE Clear (CLEAR); BILIRUBIN,URINE Negative (NEGATIVE); BLOOD, URINE Negative Ery/uL (NEGATIVE); COLOR,URINE Yellow (YELLOW); KETONES,URINE Negative (NEGATIVE); LEUKOCYTE ESTERASE ,URINE Negative (NEGATIVE); NITRITE, URINE Negative (NEGATIVE); PROTEIN,URINE Negative (NEGATIVE); UGLUCOSE Negative (NEGATIVE); UROBILINOGEN,URINE 0.2 EU/dL (0.2)
--- NOTE | 2017-12-26 10:55 | NUR ---
PATIENT TRANSPORTED TO [facility] VIA ACLS PROTOCOL. [facility] TO PROVIDE MYKEL.
[2017-12-26] MEDS ORDERED: MAG HYDROX/AL HYDROX/SIMETH 30 ML UDC PO PRN (11:00)
[2017-12-26] MEDS ORDERED: hydrALAZINE HCL 25 MG TABLET PO PRN (11:00)
[2017-12-26] MEDS ORDERED: MAGNESIUM HYDROXIDE 30 ML UDC PO PRN (11:00)
[2017-12-26] MEDS ORDERED: NITROGLYCERIN 0.4 MG/TAB BOTTLE SL PRN (11:00)
[2017-12-26] MEDS ORDERED: HYDROCODONE/APAP 5/325MG 1 EACH TABLET PO PRN (11:00)
[2017-12-26] MEDS ORDERED: ZOLPIDEM TARTRATE 5 MG TABLET PO PRN (11:00)
[2017-12-26] MEDS ORDERED: MORPHINE SULFATE INJ 2 MG/ML DISP.SYRIN IV PRN (11:00)
[2017-12-26] MEDS ORDERED: ACETAMINOPHEN 325 MG TABLET PO PRN (11:00)
[2017-12-26] MEDS ORDERED: Z GUARD REMEDY 2 OZ OINT TP PRN (11:00)
[2017-12-26] MEDS ORDERED: ONDANSETRON HCL/PF 4 MG/2 ML VIAL IVP PRN (11:00)
[2017-12-26 11:10] VITALS: BP 170/102
--- NOTE | 2017-12-26 11:30 | NUR ---
WALL COVERING INSTALLER NOTES PATIENT ARRIVED AT UNIT AT 1110 VIA GURNEY, REPORT RECEIVED FROM JT HUMPHREYS. PATIENT AWAKE, ALERT AND ORIENTED. VERBALLY RESPONSIVE AND RESPONDS TO VERBAL AND TACTILE STIMULI. BREATHING EVEN AND UNLABORED. NO SOB OR ACUTE DISTRESS NOTED. NO CHANGES IN LOC NOTED AT THIS TIME. PATIENT ON TELEMETRY. ELECTRONIC SCALE SUBASSEMBLER IN PLACE. IV SITE INTACT AND PATENT. PATIENT UNDER MEDICAL SUPERVISION OF DR. TYSON, AWARE OF PATIENT ADMISSION. PATIENT ORIENTED TO UNIT, STAFF, MEAL TIMES, MENU SYSTEM AND VERBALIZED UNDERSTANDING. WILL CONTINUE TO MONITOR. BED LOCKED AND IN LOW POSITION. BILATERAL UPPER SIDE RAILS UP AND LOCKED. CALL LIGHT WITHIN EASY REACH
[2017-12-26 11:34] LABS: THYROID STIMULATING HORMONE 0.943 uIU/mL (0.358-3.74)
[2017-12-26] MEDS: IV NS 0.9% 1,000 ML IV PRN (12:15)
[2017-12-26] MEDS: ENOXAPARIN SODIUM 40 MG/0.4 ML DISP.SYRIN SQ SCH (12:16)
[2017-12-26] MEDS ORDERED: LORAZEPAM INJ 2 MG/ML VIAL IV PRN (15:00)
[2017-12-26] MEDS: AMLODIPINE BESYLATE 5 MG TABLET PO SCH (15:49)
[2017-12-26 16:00] VITALS: BP 196/109
--- NOTE | 2017-12-26 19:12 | NUR ---
FAITH HEALER NOTES PATIENT RESTING INSIDE ROOM, AWAKE, ALERT, VERBALLY RESPONSIVE AND RESPONDS TO VERBAL AND TACTILE STIMULI. BREATHING EVEN AND UNLABORED. NO CHANGES IN LOC NOTED. PATIENT REMAINS AFEBRILE, SKIN DRY AND WARM TO TOUCH. IV INTACT AND PATENT, NO SWELLING OR BLEEDING NOTED. WILL ENDORSE TO INCOMING SHIFT FOR MYKEL. BED LOCKED AND IN LOW POSITION. BILATERAL UPPER SIDE RAILS UP AND LOCKED. CALL LIGHT WITHIN EASY REACH
--- NOTE | 2017-12-26 19:54 | NUR ---
RECIEVED SIMONA ALERT AND ORIENTATED. REQUISTING A SNACK, GIVEN AND CONSUMED 100% DENIES PAIN NO SOB SKIN WARM AND DRY. ON THE TELE MONITOR HE IS 59 HR NSR. NOW WATCHING TV
[2017-12-26 20:00] VITALS: BP 165/100
[2017-12-26 20:39] VITALS: BP 165/81
[2017-12-27] VITALS: BP 159/101
[2017-12-27] MEDS: IV NS 0.9% 1,000 ML IV PRN ×2 (02:28→16:56)
[2017-12-27 04:00] VITALS: BP 136/90
[2017-12-27 04:43] VITALS: BP 136/90
--- NOTE | 2017-12-27 05:08 | NUR ---
CLOSING NOTES: SLEPT BETWEEN CARE. REMAINS ALERT AND ORIENTATED. NPO AFTER MIDNIGHT D/T NEEDS TO BE SEEM BY THE LEGAL ADMINISTRATIVE SECRETARY AND POSSIBLE STRESS TEST. PATIENT MADE AWARE OF THIS. aPRESOLINE GIVEN X1 THI 12 HOURS @ 2029 FOR B/P 165/81 AND IT WAS EFFECTIVE BRINGING THE B/P DOWN TO 136/90. NO CHEST PAIN OR SOB THIS 12 HOURS. PLEASENT PATIENT
[2017-12-27 06:34] LABS: BASOPHILS % (AUTO) 0.5 % (0.0-2.0); EOSINOPHILS % (AUTO) 6.6 % (0.0-6.0); HEMATOCRIT 44 % (39-51); HEMOGLOBIN 14.8 g/dL (13.5-17.5); LYMPHOCYTES # (AUTO) 1.7 /CMM (0.8-4.8); LYMPHOCYTES % (AUTO) 22.3 % (20.0-44.0); MEAN CORPUSCULAR HGB CONC 34 g/dl (31.0-36.0); MEAN CORPUSCULAR VOLUME 89 fL (80-96); MONOCYTES # (AUTO) 0.6 /CMM (0.1-1.30); MONOCYTES % (AUTO) 7.3 % (2.0-12.0); NEUTROPHILS # (AUTO) 4.9 /CMM (1.8-8.9); NEUTROPHILS % (AUTO) 63.3 % (43.0-81.0); PLATELET COUNT (AUTO) 246 /CMM (150-450); RDW COEFFICIENT OF VARIATION 13.4 (11.5-15.0); RED BLOOD CELL COUNT(AUTO) 4.93 MIL/uL (4.5-6.0); WHITE BLOOD COUNT (AUTO) 7.7 K/uL (4.3-11.0)
[2017-12-27 07:00] LABS: CALCIUM, SERUM 8.4 mg/dL (8.5-10.1); MAGNESIUM 2.1 mg/dL (1.8-2.4); PHOSPHORUS 3.1 mg/dL (2.5-4.9); POTASSIUM 3.9 mmol/L (3.5-5.1)
--- NOTE | 2017-12-27 07:26 | NUR ---
LEAD LEVEL DESIGNER NOTES PATIENT RECEIVED RESTING INSIDE ROOM, SLEEPING, EASILY AROUSABLE THROUGH VERBAL AND TACTILE STIMULI. PATIENT BREATHING EVEN AND UNLABORED. NO SOB OR ACUTE DISTRESS NOTED AT THIS TIME. PATIENT DENIES ANY PAIN OR DISCOMFORT. PATIENT AFEBRILE, SKIN DRY AND WARM TO TOUCH. RECEIVED ENDORSEMENT THAT PATIENT NPO SINCE MIDNIGHT, AWAITING FOR CARDIO CONSULT. IV SITE INTACT AND PATENT, NO SWELLING OR BLEEDING NOTED. WILL CONTINUE TO MONITOR. BED LOCKED AND IN LOW POSITION. BILATERAL UPPER SIDE RAILS UP AND LOCKED. CALL LIGHT WITHIN EASY REACH.
[2017-12-27 08:00] VITALS: BP 141/93
[2017-12-27] MEDS: ASPIRIN 81 MG TAB.CHEW PO SCH (08:27)
[2017-12-27] MEDS: AMLODIPINE BESYLATE 5 MG TABLET PO SCH (08:27)
[2017-12-27] MEDS: ENOXAPARIN SODIUM 40 MG/0.4 ML DISP.SYRIN SQ SCH (08:28)
--- NOTE | 2017-12-27 08:30 | NUR ---
MID LEVEL GAME DESIGNER NOTES PATIENT SEEN AND EXAMINED BY DR. GUTIÉRREZ, WITH NEW ORDER FOR CTA OF HEART WITH 3D IMAGING. VERIFIED INFORMED CONSENT OBTAINED FROM PATIENT AND WITNESSED. RADIOLOGY AWARE, RECEIVED CALL FROM RADIOLOGY AND SPOKE WITH CAMACHO. PER CAMACHO, CTA WONT BE DONE UNTIL 4-5 PM. GAVE OK FOR PATIENT TO HAVE BREAKFAST AND LUNCH BUT SAID NOTHING MORE AFTER LUNCH. PATIENT MADE AWARE AND VERBALIZED UNDERSTANDING. AWARE.
--- NOTE | 2017-12-27 13:36 | NUR ---
MS RN NOTES RECEIVED CALL FROM RADIOLOGY AND SAID THAT CTA WILL NOT BE ABLE TO PERFORMED TODAY. RESCHEDULED FOR TOMORROW. DR GUTIRÉREZ AWARE AND GAVE OK. PATIENT OK TO HAVE BREAKFAST ON 12/28 BUT TO HOLD LUNCH IN ANTICIPATION OF CTA OF HEART. PATIENT MADE AWARE AND VERBALIZED UNDERSTANDING. PLACED CALL TO [facility] AND REQUESTED EARLY BREAKFAST FOR 12/28/17. WILL CONTINUE TO MONITOR
[2017-12-27 16:00] VITALS: BP 157/87
--- NOTE | 2017-12-27 18:18 | NUR ---
MS RN NOTES PATIENT RESTING INSIDE ROOM, AWAKE, ALERT AND ORIENTED. VERBALLY RESPONSIVE AND RESPONDS TO VERBAL AND TACTILE STIMULI. PATIENT BREATHING EVEN AND UNLABORED. NO SOB OR ACUTE DISTRESS NOTED AT THIS TIME. PATIENT REMAINS AFEBRILE, SKIN DRY AND WARM TO TOUCH. NO CHANGES IN LOC NOTED AT THIS TIME. PATIENT CALM AND RELAXED. FOR CTA IN AM. PATIENT AWARE OF PROCEDURE, MAY HAVE EARLY BREAKFAST, FNS AWARE. WILL ENDORSE TO INCOMING SHIFT FOR MYKEL. BED LOCKED AND IN LOW POSITION. BILATERAL UPPER SIDE RAILS UP AND LOCKED. CALL LIGHT WITHIN EASY REACH
--- NOTE | 2017-12-27 19:30 | NUR ---
RECEIVED PATIENT UP IN BED, AWAKE , AO X 3, ABLE TO MAKE NEEDS KNOWN. NO ACUTE DISTRESS NOTED. DENIES ANY PAIN AT THIS TIME. IV SITE PATENT, INTACT; IVF INFUSING ORDERED. SAFETY REMINDERS GIVEN. ON LOW BED WITH BILATERAL UPPER SIDE RAILS UP. CALL SHEIKH WITHIN EASY REACH. WILL CONTINUE TO MONITOR.
[2017-12-27 20:00] VITALS: BP 147/90
--- NOTE | 2017-12-28 06:15 | NUR ---
PATIENT ASLEEP, EASILY AROUSABLE. NO SIGNS OF PAIN NOTED. NEEDS ATTENDED. SAFETY PRECAUTIONS AND COMFORT MEASURES IN PLACE. WILL GIVE REPORT TO DAY SHIFT FOR CONTINUITY OF CARE.
[2017-12-28] MEDS: IV NS 0.9% 1,000 ML IV PRN (06:52)
--- NOTE | 2017-12-28 07:20 | NUR ---
REPORT RECEIVED AT THE BEDSIDE. PATIENT IS SLEEPING AT THIS TIME. NO SOB OR DISTRESS NOTED AT THIS TIME. PATIENT DOES NOT APPEAR TO BE IN PAIN, NO FACIAL GRIMACE NOTED. PT WILL HAVE BREAKFAST AND THEN BE NPO FOR CT ANGIO THIS AFTERNOON. BED IN A LOW POSITION, CALL LIGHT WITHIN PATIENT REACH. WILL MONITOR.
[2017-12-28 08:00] VITALS: BP 144/89
[2017-12-28] MEDS ORDERED: IV NS 0.9% 500 ML IV ONE (08:41)
[2017-12-28] MEDS ORDERED: IOHEXOL-350 100 ML VIAL IV ONE (08:41)
[2017-12-28] MEDS ORDERED: CT SWABBABLE VALVE TRANS SET 1 EA INFUS.SET MC ONE (08:41)
[2017-12-28] MEDS: ASPIRIN 81 MG TAB.CHEW PO SCH (08:51)
[2017-12-28] MEDS: AMLODIPINE BESYLATE 5 MG TABLET PO SCH (08:51)
[2017-12-28] MEDS: ENOXAPARIN SODIUM 40 MG/0.4 ML DISP.SYRIN SQ SCH (08:52)
[2017-12-28] MEDS ORDERED: METOPROLOL TARTRATE INJ 5 MG/5 ML AMPUL ONE (10:23)
[2017-12-28 16:10] VITALS: BP 123/76
--- NOTE | 2017-12-28 18:00 | NUR ---
DISCHARGE INSTRUCTIONS GIVEN TO THE PATIENT AND ABLE TO UNDERSTAND. NO SOB OR DISTRESS NOTED AT THIS TIME. PATIENT DENIES PAIN. ALL PAPERWORK SIGNED AND BELONGINGS ACCOUNTED FOR. FLU AND PNEUMONIA VACCINES NOT GIVEN OUT OF SE[place] AND PATIENT <65 YEARS OLD WITH NO RISK FACTORS. PATIENT IS REFUSING TO HAVE A FOLLOW UP APPOINTMENT SCHEDULED WITH HIS EMERGING TECHNOLOGIES DIRECTOR, DR PALMER. STATES HE WILL CALL HIM ON SATURDAY. IV REMOVED AND PRESSURE APPLIED, NO BLEEDING NOTED AT THE SITE. PATIENT LEFT IN STABLE CONDITION, AMBULATORY AND TOLERATED WELL. DISCHARGED HOME VIA PRIVATE CAR WITH FRIEND.
== END 2017-12-28 18:04 | disposition home or self-care (01) | DRG 203 ==
LOC: EDBD → EDUNIT# 08:44 → ER 08:48 → TELE 10:21 → MED 12-27 08:50
PROVIDERS: ADMIT Internal Medicine; ATTEND Internal Medicine
DX: M94.0 Chondrocostal junction syndrome [Tietze] (principal); I11.0 Hypertensive heart disease with heart failure; I50.9 Heart failure, unspecified; I48.0 Paroxysmal atrial fibrillation; E78.5 Hyperlipidemia, unspecified; K21.9 Gastro-esophageal reflux disease without esophagitis; F17.210 Nicotine dependence, cigarettes, uncomplicated; I13.0 Hypertensive heart and chronic kidney disease with heart failure and stage 1 through stage 4 chronic kidney disease, or unspecified chronic kidney disease; N18.9 Chronic kidney disease, unspecified; F10.20 Alcohol dependence, uncomplicated; Z79.82 Long term (current) use of aspirin; Z79.899 Other long term (current) drug therapy; F14.90 Cocaine use, unspecified, uncomplicated; F12.90 Cannabis use, unspecified, uncomplicated; I34.0 Nonrheumatic mitral (valve) insufficiency; Z91.19 Patient's noncompliance with other medical treatment and regimen; Y90.9 Presence of alcohol in blood, level not specified; Z96.659 Presence of unspecified artificial knee joint
CPT/HCPCS: 36415; 71045-TC; 75574; 80048-TC; 80061-TC; 80076-TC; 80305; 81000-TC; 82746; 83540-TC; 83735-TC; 83880; 84100-TC; 84443-TC; 84484-TC; 85025-TC; 85730-TC; 87081-TC; A4606; G0480; J1650; J2405; J3490; J7030; J7040; Q9967; Z7610

== ENCOUNTER 2018-03-17 19:54 | Inpatient (IN) | payer MEDICAID ==
[~2018-03-17] VITALS: Ht 175.3 cm; Wt 83.1 kg
--- NOTE | 2018-03-17 19:54 | NUR ---
BB SELF; "WHILE WALKING HAD A SYNCOPE EPISODE, HAD A GLF, RIGHT SHOULDER, LEFT KNEE PAIN". PT IS HYPERTENSIVE AND TACHYPNIC BUT OTHERWISE VSS NO ACUTE DISTRESS AT THIS TIME. A/OX4 ABLE TO MAKE NEEDS KNOWN.
--- NOTE | 2018-03-17 19:55 | NUR ---
ER MD DOMINGUEZ AT BEDSIDE FOR EVAL
--- NOTE | 2018-03-17 21:00 | NUR ---
RADIOLOGY AT BEDSIDE
--- NOTE | 2018-03-17 21:00 | NUR ---
BLOOD TAKEN TO LAB
[2018-03-17 21:03] LABS: BASOPHILS # (AUTO) 0.2 /CMM (0.0-0.2); BASOPHILS % (AUTO) 1.9 % (0.0-2.0); HEMATOCRIT 34 % (39-51); HEMOGLOBIN 11.4 g/dL (13.5-17.5); LYMPHOCYTES # (AUTO) 1.7 /CMM (0.8-4.8); LYMPHOCYTES % (AUTO) 16.4 % (20.0-44.0); MEAN CORPUSCULAR HEMOGLOBIN 30 PG (26.0-33.0); MEAN CORPUSCULAR HGB CONC 34 g/dl (31.0-36.0); MEAN CORPUSCULAR VOLUME 90 fL (80-96); MONOCYTES # (AUTO) 0.6 /CMM (0.1-1.30); MONOCYTES % (AUTO) 6.3 % (2.0-12.0); NEUTROPHILS # (AUTO) 6.9 /CMM (1.8-8.9); NEUTROPHILS % (AUTO) 68.4 % (43.0-81.0); PLATELET COUNT (AUTO) 329 /CMM (150-450); RDW COEFFICIENT OF VARIATION 13.7 (11.5-15.0); RED BLOOD CELL COUNT(AUTO) 3.78 MIL/uL (4.5-6.0); WHITE BLOOD COUNT (AUTO) 10.1 K/uL (4.3-11.0)
[2018-03-17 21:18] LABS: INR 0.97 (0.85-1.15)
[2018-03-17 21:30] LABS: TROPONIN I < 0.017 ng/mL (0.00-0.056)
--- NOTE | 2018-03-17 21:30 | NUR ---
CALLED NURSING SUPERVISOR GARMENT MANUFACTURING AND REQUESTED A TELE BED FOR THIS PT.
[2018-03-17 21:31] LABS: CALCIUM, SERUM 8.9 mg/dL (8.5-10.1); CARBON DIOXIDE 25 mmol/L (21-32); CHLORIDE 105 mmol/L (98-107); CREATININE 1.2 mg/dL (0.6-1.3); GLUCOSE 82 mg/dL (74-106); POTASSIUM 3.7 mmol/L (3.5-5.1); SODIUM SERUM 140 mmol/L (136-145); UREA NITROGEN, BLOOD 21 mg/dL (7-18)
[2018-03-17 21:37] LABS: ALANINE AMINOTRANSFERASE 22 U/L (12-78); ALBUMIN 3.4 g/dL (3.4-5.0); ALKALINE PHOSPHATASE 106 U/L (46-116); ASPARTATE AMINOTRANSFERASE 24 U/L (15-37); BILIRUBIN,DIRECT 0.1 mg/dL (0.0-0.2); BILIRUBIN,TOTAL 0.5 mg/dL (0.2-1.0); TOTAL PROTEIN, SERUM 7.2 g/dL (6.4-8.2)
[2018-03-17 22:25] VITALS: BP 155/91
[2018-03-17 22:30] VITALS: BP 155/91
--- NOTE | 2018-03-17 22:30 | NUR ---
TELE/RN NOTES RECEIVED PT. FROM ER VIA JESSICA. PT. IS AWAKE, ALERT AND ORIENTED X3. BREATHING EVEN AND UNLABORED ON ROOM AIR. NO SOB, RESPIRATORY DISTRESS OR COMPLAINTS OF PAIN NOTED AT THIS TIME. ORIENTED PT. TO ROOM. PLACED EXTERNAL BAND BUILDER ON PT. CURRENT RHYTHM = SINUS RHYTHM HR 72. PT. WITH RIGHT AC 20 GAUGE IV SALINE LOCK PRESENT, PATENT AND INTACT. BED LOCKED AND IN LOWEST POSITION, SIDE RAILS UP X2, BED ALARM ON, CALL LIGHT WITHIN REACH, AWAITING ADMITTING ORDERS, WILL CONTINUE TO MONITOR.
[2018-03-18] VITALS (9 sets, daily range): BP systolic 136–159; BP diastolic 79–93
[2018-03-18] MEDS ORDERED: Z GUARD REMEDY 2 OZ OINT TP PRN
[2018-03-18] MEDS ORDERED: MAG HYDROX/AL HYDROX/SIMETH 30 ML UDC PO PRN
[2018-03-18] MEDS ORDERED: ACETAMINOPHEN 325 MG TABLET PO PRN
[2018-03-18] MEDS ORDERED: ONDANSETRON HCL/PF 4 MG/2 ML VIAL IVP PRN
[2018-03-18] MEDS ORDERED: MAGNESIUM HYDROXIDE 30 ML UDC PO PRN
[2018-03-18] MEDS ORDERED: HYDROCODONE/APAP 5/325MG 1 EACH TABLET PO PRN
[2018-03-18] MEDS ORDERED: MORPHINE SULFATE INJ 2 MG/ML DISP.SYRIN IV PRN
--- NOTE | 2018-03-18 06:19 | NUR ---
TELE/RN NOTES PT. IS LYING IN BED RESTING. BREATHING EVEN AND UNLABORED ON ROOM AIR. NO SOB, RESPIRATORY DISTRESS OR COMPLAINTS OF PAIN NOTED AT THIS TIME. PT. WITH EXTERNAL PHARMACY INFORMATICS MANAGER PRESENT AND INTACT, CURRENT RHYTHM = SINUS RHYTHM HR 62. PT. WITH RIGHT AC 20 GAUGE IV SALINE LOCK PRESENT, PATENT AND INTACT. ALL PT. NEEDS MET. BED LOCKED AND IN LOWEST POSITION, SIDE RAILS UP X2, BED ALARM ON, CALL LIGHT WITHIN REACH, AWAITING ADMITTING ORDERS, WILL ENDORSE TO DAYSHIFT NURSE FOR CONTINUITY OF CARE.
[2018-03-18 06:30] LABS: BASOPHILS % (AUTO) 0.3 % (0.0-2.0); EOSINOPHILS % (AUTO) 9.1 % (0.0-6.0); HEMATOCRIT 32 % (39-51); HEMOGLOBIN 10.6 g/dL (13.5-17.5); LYMPHOCYTES # (AUTO) 1.3 /CMM (0.8-4.8); LYMPHOCYTES % (AUTO) 18.8 % (20.0-44.0); MEAN CORPUSCULAR HEMOGLOBIN 31 PG (26.0-33.0); MEAN CORPUSCULAR HGB CONC 34 g/dl (31.0-36.0); MEAN CORPUSCULAR VOLUME 91 fL (80-96); MONOCYTES # (AUTO) 0.5 /CMM (0.1-1.30); MONOCYTES % (AUTO) 7.9 % (2.0-12.0); NEUTROPHILS # (AUTO) 4.3 /CMM (1.8-8.9); NEUTROPHILS % (AUTO) 63.9 % (43.0-81.0); PLATELET COUNT (AUTO) 278 /CMM (150-450); RDW COEFFICIENT OF VARIATION 14.6 (11.5-15.0); RED BLOOD CELL COUNT(AUTO) 3.47 MIL/uL (4.5-6.0); WHITE BLOOD COUNT (AUTO) 6.7 K/uL (4.3-11.0)
[2018-03-18 06:43] LABS: THYROID STIMULATING HORMONE 0.865 uIU/mL (0.358-3.74)
[2018-03-18 07:03] LABS: CALCIUM, SERUM 8.2 mg/dL (8.5-10.1)
[2018-03-18 07:04] LABS: POTASSIUM 3.6 mmol/L (3.5-5.1)
[2018-03-18 07:05] LABS: MAGNESIUM 2.2 mg/dL (1.8-2.4); PHOSPHORUS 3.6 mg/dL (2.5-4.9)
--- NOTE | 2018-03-18 09:00 | NUR ---
DISABILITY PROGRAM NAVIGATOR OPENING NOTES PT IS A&O X3, AWAKE IN BED, WITH BED IN LOWEST POSITION WITH SIDE RAILS UP X2. PT HAS NO DISTRESS, NOR PAIN. PT HAS SINUS RHYTHM IN 70s. IV SITE IS INTACT AND PATENT ON RIGHT AC. PT IS CONTINENT WITH URINAL. WILL CONTINUE TO MONITOR PT THROUGHOUT SHIFT,
[2018-03-18] MEDS: ASPIRIN EC 81 MG TABLET.DR PO SCH (10:08)
--- NOTE | 2018-03-18 12:51 | NUR ---
TEXTED DR. DUTTA FOR MRI APPROVAL.
[2018-03-18] MEDS: IV NS 0.9% 1,000 ML IV PRN ×2 (15:40→20:30)
--- NOTE | 2018-03-18 18:35 | NUR ---
TELE CLOSING NOTES PT IS AWAKE, CONTINUES TO WATCH TV. ALL SAFETY MEASURES WERE IMPLEMENTED THROUGHOUT SHIFT. PT HAS NO COMPLAINTS THROUGHOUT SHIFT. NO EPISODES OF SYNCOPE DURING SHIFT. WILL ENDORSE TO COOKING SHOW HOST.
[2018-03-18] MEDS: ZOLPIDEM TARTRATE 10 MG TABLET PO PRN (21:15)
[2018-03-19] VITALS (8 sets, daily range): BP systolic 141–180; BP diastolic 85–96
[2018-03-19 07:04] LABS: BASOPHILS % (AUTO) 0.4 % (0.0-2.0); EOSINOPHILS % (AUTO) 9.1 % (0.0-6.0); HEMATOCRIT 35 % (39-51); HEMOGLOBIN 11.5 g/dL (13.5-17.5); LYMPHOCYTES # (AUTO) 1.4 /CMM (0.8-4.8); LYMPHOCYTES % (AUTO) 19.5 % (20.0-44.0); MEAN CORPUSCULAR HEMOGLOBIN 31 PG (26.0-33.0); MEAN CORPUSCULAR HGB CONC 33 g/dl (31.0-36.0); MEAN CORPUSCULAR VOLUME 92 fL (80-96); MONOCYTES # (AUTO) 0.6 /CMM (0.1-1.30); MONOCYTES % (AUTO) 8.1 % (2.0-12.0); NEUTROPHILS # (AUTO) 4.5 /CMM (1.8-8.9); NEUTROPHILS % (AUTO) 62.9 % (43.0-81.0); PLATELET COUNT (AUTO) 270 /CMM (150-450); RDW COEFFICIENT OF VARIATION 14.8 (11.5-15.0); RED BLOOD CELL COUNT(AUTO) 3.76 MIL/uL (4.5-6.0); WHITE BLOOD COUNT (AUTO) 7.1 K/uL (4.3-11.0)
[2018-03-19 07:29] LABS: ALBUMIN 2.7 g/dL (3.4-5.0); BILIRUBIN,TOTAL 0.3 mg/dL (0.2-1.0); CALCIUM, SERUM 8.1 mg/dL (8.5-10.1); CREATININE 0.9 mg/dL (0.6-1.3); PHOSPHORUS 3.2 mg/dL (2.5-4.9); POTASSIUM 3.8 mmol/L (3.5-5.1)
--- NOTE | 2018-03-19 08:04 | NUR ---
TELE OPENING NOTES PT IS A&O X 3, AWAKE IN BED. PT IS TO BE TRANSFERRED FROM TELE TO MED SURG PER MD ORDER. PT IS CONTINENT, USES URINAL. HAS FOREHEAD ABRASION, FOLLOWING BLE SCABS. IV IS PATENT AND INTACT FOLLOWING R AC, NS 200 ML/HR. DENIES PAIN. PT PLACED WITH BED IN LOWEST POSITION AND CALL LIGHT IN REACH. WILL CONTINUE TO MONITOR PT THROUGHOUT SHIFT
[2018-03-19] MEDS: ASPIRIN EC 81 MG TABLET.DR PO SCH (09:13)
[2018-03-19] MEDS ORDERED: hydrALAZINE HCL 25 MG TABLET PO PRN (12:30)
[2018-03-19] MEDS: MORPHINE SULFATE INJ 2 MG/ML DISP.SYRIN IV PRN ×2 (13:56→21:51)
--- NOTE | 2018-03-19 18:39 | NUR ---
MS CLOSING NOTES PT IS AWAKE, IN BED, A&O X3 WAS TRANSFERRED FROM TELE TO MED SURG. PT IS CONTINENT, USES AN URINAL, AND HAS HAD ONE BOWEL MOVEMENT THROUGHOUT SHIFT. IV PATENT AND INTACT ON RAC #20. PT C/O OF PAIN IN LEFT KNEE AND LOWER LEFT EXTREMITY, WAS ADMINISTERED MORPHINE 2MG AT 1356. PER ORTHO PT IS STABLE AND OK TO DC. WILL ENDORSE TO CHISEL TRIMMER.
--- NOTE | 2018-03-19 20:21 | NUR ---
MS SHELL MOLD BONDING MACHINE OPERATOR INITIAL NOTES SEEN PT IN BED AFTER GOT REPORT FROM AM NURSE OBED, PT AWAKE AND ALERT WATCHING TV AT THIS TIME . DENIES ANY PAIN OR ANY DISCOMFORT. RESPIRATION EVEN AND NON-LABORED. ENCOURAGE HIM TO USED THE CALL LIGHT SYSTEM . KEPT HIM WARM AND COMFORTABLE AT ALL TIMES. PLACE CALL LIGHT AT REACH. WILL CONTINUE MONITORING.
[2018-03-19] MEDS: ZOLPIDEM TARTRATE 10 MG TABLET PO PRN (21:41)
--- NOTE | 2018-03-19 21:51 | NUR ---
MS MENDY NOTES C/O BOTH KNEES PAIN , MORPHINE 2 MG IVP ADMINISTERED BY ANOTHER NURSE ORDERED.
--- NOTE | 2018-03-20 00:30 | NUR ---
MS DIABETES MANAGER NOTES PT SLEEPING COMFORTABLY IN BED WITHOUT ANY ACUTE DISTRESS NOTED. KEPT HIM WARM AND COMFORTABLE AT ALL TIMES. PLACE CALL LIGHT AT REACH.
--- NOTE | 2018-03-20 07:02 | NUR ---
MS ATTENDANCE CLERK CLOSING NOTES PT BACK TO SLEEP AFTER MORNING CARE DONE. SLEPT WELL AFTER SLEEP MEDICATION GIVEN. PAIN SUBSIDE TOO. STABLE BRIAN THE NIGHT AND ALL DUE MEDS GIVEN AND ALL NEEDS MET. KEPT HIM WARM AND COMFORTABLE AT ALL TIMES. PLACE CALL LIGHT AT REACH. ENDORSE TO AM NURSE FOR CONTINUITY OF CARE.
--- NOTE | 2018-03-20 07:15 | NUR ---
MS/RN INITIAL NOTES RECEIVED PT IN BED, A/O X4. TOLERATING ROOM AIR WELL, NO SOB NOTED. NO C/O PAIN AT THIS TIME. WITH INTACT RAC G#20 SL. NO SIGNS OF INFECTION NOTED. HOB ELEVATED. SAFETY MEASURES IN PLACED. KEPT CALL LIGHT WITHIN REACH. WILL CONT TO MONITOR
[2018-03-20 08:00] VITALS: BP 167/90
[2018-03-20 08:20] VITALS: BP 167/90
[2018-03-20] MEDS: ASPIRIN EC 81 MG TABLET.DR PO SCH (08:20)
--- NOTE | 2018-03-20 11:07 | NUR ---
WOUND CARE CONSULT PATIENT SEEN AND SKIN INTEGRITY ASSESSMENT DONE. PLEASE SEE HALFWAY HOUSE COUNSELOR ASSESSMENT IN PCS. PATIENT WITH KEN OF 20. ALL PRESSURE ULCER PREVENTION MEASURES NOTED TO BE IN PLACE PER PLAN OF CARE. WILL SEE PATIENT PRN. Addendum: 03/20/18 at 1111 by CODY BRUSH RN Amended: Links added.
[2018-03-20] MEDS ORDERED: VALS80TA2 PO (11:54)
[2018-03-20] MEDS ORDERED: ASPI-1152 PO (11:54)
--- NOTE | 2018-03-20 16:05 | NUR ---
RN NOTES D/C PT TO BOARD AND CARE IN STABLE CONDITION. TRANSPORTED BY [facility] ARRANGED BY HOSP. ASSISTED IN W/C BY KAYLA MUHAMMAD. IN NO SIGNS OF ACUTE DISTRESS. NO C/O PAIN. D/C INSTRUCTIONS DISCUSSED/GIVEN, PT VERBALIZED UNDERSTANDING. HEPLOCK D/C, PLACED PRESSURE DRESSING, NO BLEEDING/INFECTION NOTED. SAFETY MEASURES OBSERVED AT ALL TIMES. ALL NEEDS ANTICIPATED. DISCHARGED
== END 2018-03-20 16:15 | disposition home or self-care (01) | DRG 48 ==
LOC: ER 20:00 → EDBD 21:42 → TELE 21:42 → MED 03-19 10:18
PROVIDERS: ADMIT Nurse Practitioner Acute Care; ATTEND Nurse Practitioner Acute Care
DX: G90.8 Other disorders of autonomic nervous system (principal); N17.0 Acute kidney failure with tubular necrosis; I13.0 Hypertensive heart and chronic kidney disease with heart failure and stage 1 through stage 4 chronic kidney disease, or unspecified chronic kidney disease; D63.8 Anemia in other chronic diseases classified elsewhere; G62.9 Polyneuropathy, unspecified; I50.32 Chronic diastolic (congestive) heart failure; I48.2 Chronic atrial fibrillation; S83.512A Sprain of anterior cruciate ligament of left knee, initial encounter; N18.9 Chronic kidney disease, unspecified; M17.12 Unilateral primary osteoarthritis, left knee; F19.10 Other psychoactive substance abuse, uncomplicated; Z96.659 Presence of unspecified artificial knee joint; Z91.14 Patient's other noncompliance with medication regimen; F17.200 Nicotine dependence, unspecified, uncomplicated; F10.10 Alcohol abuse, uncomplicated; Y90.9 Presence of alcohol in blood, level not specified; X58.XXXA Exposure to other specified factors, initial encounter; Y92.049 Unspecified place in boarding-house as the place of occurrence of the external cause; K21.9 Gastro-esophageal reflux disease without esophagitis
CPT/HCPCS: 36415; 70450-TC; 71045-TC; 73562; 73721-TC; 80048-TC; 80053-TC; 80061-TC; 80076-TC; 83735-TC; 84100-TC; 84443-TC; 84484-TC; 85025-TC; 85730-TC; 87081-TC; 93307-TC; 93880-TC; 95819-TC; A4606; J2270; J7030; Z7610

== ENCOUNTER 2019-02-27 16:14 | Emergency (ER) | payer MEDICAID ==
[~2019-02-27] VITALS: Ht 165.1 cm; Wt 78.9 kg
[~2019-02-27 16:14] MED LIST changes: +ASPI-1152 PO; -ASPI-1169 PO; -ATOR10TA PO
[2019-02-27 16:28] VITALS: BP 141/84
== END 2019-02-27 16:59 | disposition home or self-care (01) ==
LOC: ER 16:18
DX: S50.311A Abrasion of right elbow, initial encounter (principal); L03.113 Cellulitis of right upper limb; I48.91 Unspecified atrial fibrillation; I13.0 Hypertensive heart and chronic kidney disease with heart failure and stage 1 through stage 4 chronic kidney disease, or unspecified chronic kidney disease; N18.9 Chronic kidney disease, unspecified; I50.9 Heart failure, unspecified; E87.6 Hypokalemia; F10.10 Alcohol abuse, uncomplicated; F17.200 Nicotine dependence, unspecified, uncomplicated; Y90.9 Presence of alcohol in blood, level not specified; Z91.14 Patient's other noncompliance with medication regimen; Z79.82 Long term (current) use of aspirin; W18.30XA Fall on same level, unspecified, initial encounter; Y93.89 Activity, other specified; Y92.89 Other specified places as the place of occurrence of the external cause; Y99.8 Other external cause status

== ENCOUNTER 2019-06-07 13:14 | Emergency (ER) | payer MEDICAID ==
[~2019-06-07] VITALS: Ht 172.7 cm; Wt 86.2 kg
--- NOTE | 2019-06-07 13:30 | NUR ---
sob, states " fainted" and fell 2 hours ago. c/o R shoulder, hip and knee pain. Patient a/ox4, breathing even and unlabored, no sob noted, needs attended, attached to the medical office professional instructor. Will continue to monitor.
[2019-06-07] MEDS ORDERED: ONDANSETRON HCL/PF 4 MG/2 ML VIAL ONE (13:36)
[2019-06-07] MEDS ORDERED: MORPHINE SULFATE INJ 2 MG/ML DISP.SYRIN ONE (13:37)
[2019-06-07 13:50] LABS: BASOPHILS # (AUTO) 0.1 /CMM (0.0-0.2); BASOPHILS % (AUTO) 1.5 % (0.0-2.0); EOSINOPHILS % (AUTO) 6.1 % (0.0-6.0); HEMATOCRIT 45 % (39-51); HEMOGLOBIN 15.2 g/dL (13.5-17.5); LYMPHOCYTES # (AUTO) 1.3 /CMM (0.8-4.8); LYMPHOCYTES % (AUTO) 18.5 % (20.0-44.0); MEAN CORPUSCULAR HGB CONC 34 g/dl (31.0-36.0); MEAN CORPUSCULAR VOLUME 92 fL (80-96); MONOCYTES # (AUTO) 0.5 /CMM (0.1-1.30); NEUTROPHILS # (AUTO) 4.6 /CMM (1.8-8.9); NEUTROPHILS % (AUTO) 66.9 % (43.0-81.0); PLATELET COUNT (AUTO) 246 /CMM (150-450); RED BLOOD CELL COUNT(AUTO) 4.89 MIL/uL (4.5-6.0); WHITE BLOOD COUNT (AUTO) 6.8 K/uL (4.3-11.0)
[2019-06-07] MEDS ORDERED: MORPHINE SULFATE INJ 2 MG/ML DISP.SYRIN IV ONE (14:00)
[2019-06-07] MEDS ORDERED: IV NS 0.9% 500 ML BAG IV ONE (14:00)
[2019-06-07] MEDS ORDERED: ONDANSETRON HCL/PF 4 MG/2 ML VIAL IVP ONE (14:00)
[2019-06-07 14:05] LABS: ALANINE AMINOTRANSFERASE 21 U/L (12-78); ALBUMIN 3.6 g/dL (3.4-5.0); ALKALINE PHOSPHATASE 68 U/L (46-116); ASPARTATE AMINOTRANSFERASE 20 U/L (15-37); BILIRUBIN,DIRECT 0.1 mg/dL (0.0-0.2); BILIRUBIN,TOTAL 0.5 mg/dL (0.2-1.0); CALCIUM, SERUM 8.8 mg/dL (8.5-10.1); CARBON DIOXIDE 29 mmol/L (21-32); CHLORIDE 105 mmol/L (98-107); CREATININE 1.5 mg/dL (0.6-1.3); GLUCOSE 101 mg/dL (74-106); POTASSIUM 3.7 mmol/L (3.5-5.1); SODIUM SERUM 141 mmol/L (136-145); TOTAL PROTEIN, SERUM 7.3 g/dL (6.4-8.2); UREA NITROGEN, BLOOD 17 mg/dL (7-18)
[2019-06-07] MEDS ORDERED: IV NS 0.9% 1,000 ML BAG IV ONE (14:30)
[2019-06-07] MEDS ORDERED: IBUPROFEN 600 MG TABLET PO ONE ×2 (15:00→15:46)
[2019-06-07] MEDS ORDERED: ACETAMINOPHEN ES 500 MG TABLET PO ONE (15:00)
[2019-06-07] MEDS ORDERED: ACETAMINOPHEN ES 500 MG TABLET ONE (15:46)
--- NOTE | 2019-06-07 16:13 | NUR ---
Patient ambulatory with a steady gait. IV removed. Catheter intact and site benign. Pressure and 4x4 applied to site. No bleeding noted.Patient discharged to home in stable condition. Written and verbal after care instructions given. Patient verbalizes understanding of instruction.
[2019-06-07 16:14] VITALS: BP 168/99
== END 2019-06-07 16:15 | disposition home or self-care (01) ==
LOC: ER 13:14
DX: S83.8X2A Sprain of other specified parts of left knee, initial encounter (principal); S43.491A Other sprain of right shoulder joint, initial encounter; M16.11 Unilateral primary osteoarthritis, right hip; R55 Syncope and collapse; J44.9 Chronic obstructive pulmonary disease, unspecified; I11.0 Hypertensive heart disease with heart failure; I50.9 Heart failure, unspecified; I48.20 Chronic atrial fibrillation, unspecified; F17.200 Nicotine dependence, unspecified, uncomplicated; Z79.82 Long term (current) use of aspirin; Z91.14 Patient's other noncompliance with medication regimen; Z79.899 Other long term (current) drug therapy; W18.39XA Other fall on same level, initial encounter; Y93.89 Activity, other specified; Y92.89 Other specified places as the place of occurrence of the external cause; Y99.8 Other external cause status
CPT/HCPCS: 36415; 70450; 71045; 73030; 73502; 73564; 80048; 80076; 80307; 84484; 85025; 93005; 96361; 96374; 96375; 99284; J2270; J2405; J7030; J7040; G0480

== ENCOUNTER 2019-10-31 13:02 | Emergency (ER) | payer MEDICAID ==
[~2019-10-31] VITALS: Ht 172.7 cm; Wt 86.2 kg
--- NOTE | 2019-10-31 13:10 | NUR ---
BIB SELF C/O L ARM AND BACK ABSCESS STARTED LAST WEEK. TO ER BED 9, HOOKED TO MONITOR, CHANGED TO HOSP GOWN, WARM BLANKET PROVIDED, PATIENT AOx4 , BREATHING EVEN AND UNLABORED. AWAITING MD HOLDEN.
--- NOTE | 2019-10-31 13:23 | NUR ---
DR MACE AT BEDSIDE
--- NOTE | 2019-10-31 13:38 | NUR ---
Patient discharged to home in stable condition. Written and verbal after care instructions given. Patient verbalizes understanding of instruction.
[2019-10-31 13:39] VITALS: BP 124/51
== END 2019-10-31 13:39 | disposition home or self-care (01) ==
LOC: ER 13:04
DX: S50.812A Abrasion of left forearm, initial encounter (principal); I13.0 Hypertensive heart and chronic kidney disease with heart failure and stage 1 through stage 4 chronic kidney disease, or unspecified chronic kidney disease; N18.9 Chronic kidney disease, unspecified; I50.9 Heart failure, unspecified; I48.91 Unspecified atrial fibrillation; F17.200 Nicotine dependence, unspecified, uncomplicated; Z79.899 Other long term (current) drug therapy; Z79.82 Long term (current) use of aspirin; X58.XXXA Exposure to other specified factors, initial encounter; Y93.89 Activity, other specified; Y92.89 Other specified places as the place of occurrence of the external cause; Y99.8 Other external cause status